=== PATIENT | female | born 1985 | race Caucasian/White ===

== ENCOUNTER 2017-06-07 13:37 | Emergency (ER) | payer OTHER ==
[2017-06-07 13:42] VITALS: BP 121/64; PULSE 61; RESP 18; TEMP 97
[2017-06-07] MEDS ORDERED: ACETAMINOPHEN TAB 500 MG TAB PO STA (14:06)
[2017-06-07] MEDS ORDERED: PENICILLIN VK 500MG STARTER 4 TAB BTL PO STA (14:06)
--- NOTE | 2017-06-07 14:13 | ED ---
ENT HPI - General Chief complaint: Dental/Oral Stated complaint: dental pain, 36 weeks Time Seen by Provider: 06/07/17 13:50 Source: patient, RN notes reviewed, old records reviewed Mode of arrival: ambulatory Limitations: no limitations - History of Present Illness Initial comments: General feel presents emergency chief complaint of right lower dental pain, broken tooth #31. She reports that she did this 2 weeks ago. She reports she' s had increasing pain, swelling around the gum. She is currently 36 weeks . She reports that her [employer] is in [place], she's been going back and forth between [place] and here due to her 's work. Patient reports that she plans to [place] any time for delivery of the baby. She denies any difficulty swallowing, denies any fever or chills or major swelling noted to the face. 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 Patient reports that that has been relatively chronic. Patient denies any chest pain, short of breath, nausea, vomiting, headaches, vision changes. She reports that she's been taking Tylenol for pain with little relief. - Related Data Home Medications Medication Instructions Recorded Confirmed Acetaminophen Tab [Tylenol Tab] 650 mg PO Q4H PRN 06/07/17 06/07/17 Previous Rx's Medication Instructions Recorded Penicillin V Potassium [Pen Vee K] 500 mg PO QID #28 tablet 06/07/17 Allergies Allergy/AdvReac Type Severity Reaction Status Date / Time No Known Allergies Allergy Verified 06/07/17 13:46 Review of Systems ROS Statement: Those systems with pertinent positive or pertinent negative responses have been documented in the HPI. ROS Other: All systems not noted in ROS Statement are negative. Past Medical History Past Medical History: No Reported History History of Any Multi-Drug Resistant Organisms: None Reported Past Surgical History: Section Past Psychological History: Anxiety, Depression Smoking Status: Current every day smoker Past Alcohol Use History: None Reported Past Drug Use History: None Reported General Exam - General Exam Comments Initial Comments: 31-year-old female. No distress. General: Well appearing, well nourished, in no distress. Oriented x 3, normal mood and affect . Ambulating without difficulty. Skin: Good turgor, no rash, unusual bruising or prominent lesions Hair: Normal texture and distribution. HEENT: Head: Normocephalic, atraumatic, no visible or palpable masses, depressions, or scaring. Mouth: Mucous membranes moist, patient has broken tooth #30. Jimenez mild erythema and swelling around the tooth. Pharynx: Mucosa non-inflamed, no tonsillar hypertrophy or exudate Neck: Supple patient has a 4 cm x 5 cm soft tissue lipoma over the right anterior neck. It has been chronic. Heart: No cardiomegaly or thrills; regular rate and rhythm, no murmur or gallop Lungs: Clear to auscultation and percussion Abdomen: Bowel sounds normal, no tenderness, organomegaly, masses, or hernia Back: Spine normal without deformity or tenderness, no CVA tenderness Extremities: No amputations or deformities, cyanosis, edema or varicosities, peripheral pulses intact Musculoskeletal: Normal gait and station. No misalignment, asymmetry, crepitation, defects, tenderness, masses. Neurologic: Sensation to pain, touch, and proprioception normal. Psychiatric: Oriented X3, intact recent and remote memory, judgment and insight , normal mood and affect. Limitations: no limitations Course Vital Signs 06/07/17 13:38 Temperature 97.0 F L Pulse Rate 61 Respiratory 18 Rate Blood Pressure 121/64 O2 Sat by Pulse 98 Oximetry Medical Decision Making - Medical Decision Making 31-year-old female is currently 36 weeks presents to permanent dental pain, broken tooth #30. Minor swelling noted around the gum. This helped with the patient on Pen-Vee K. Discussed that he also acceptable for pain at this time. Discussed above seizing teabags. Discussed following up with dentist To possibly remove. I discussed the importance of following up with an [employer] here , she is traveling back and forth whenever she does live elevation is have a plan. Patient agrees to treatment plan will comply. Return parameters were discussed. Disposition Clinical Impression: Pain, dental, Broken tooth Disposition: HOME SELF-CARE Condition: Good Instructions: Dental Caries (ED), Toothache (ED) Additional Instructions: [facility] [id number] [place] [address] [phone] (existing clients only) For new clients: [phone] 1st consult: $50 (includes Xrays) Usually 30% less then private dentist for visits after. [employer] [facility] [employer] Have to pay $50 for Xrays anmd rest is covered. [phone] Prescriptions: Penicillin V Potassium [Pen Vee K] 500 mg PO QID #28 tablet Referrals: None,Stated [Primary Care Provider] - 1-2 days Kera Cuevas MD [STAFF PHYSICIAN] - 1-2 days Mónica Wade DO [Doctor of Osteopathic Medicine] - 1-2 days Time of Disposition: 14:07
== END 2017-06-07 14:26 | disposition home or self-care (01) ==
LOC: EC 13:37
DX: O9A.213 Injury, poisoning and certain other consequences of external causes complicating pregnancy, third trimester (principal); S02.5XXA Fracture of tooth (traumatic), initial encounter for closed fracture; O99.89 Other specified diseases and conditions complicating pregnancy, childbirth and the puerperium; D17.0 Benign lipomatous neoplasm of skin and subcutaneous tissue of head, face and neck; O99.333 Smoking (tobacco) complicating pregnancy, third trimester; F17.200 Nicotine dependence, unspecified, uncomplicated; Z98.890 Other specified postprocedural states; Z3A.36 36 weeks gestation of pregnancy; X58.XXXA Exposure to other specified factors, initial encounter
CPT/HCPCS: 99283

== ENCOUNTER 2017-11-13 20:51 | Emergency (ER) | payer OTHER ==
[2017-11-13 20:58] VITALS: RESP 16; TEMP 98.3
[2017-11-13 21:48] LABS: Basophils % (A) 0 %; Eosinophils # (A) 0.1 k/uL (0-0.7); Eosinophils % (A) 3 %; HCT 36.1 % (34.0-46.0); HGB 13.3 gm/dL (11.4-16.0); Hyperchromasia Slight; Lymphocytes # (A) 2.4 k/uL (1.0-4.8); Lymphocytes % (A) 47 %; MCH 33.4 pg (25.0-35.0); MCHC 36.9 g/dL (31.0-37.0); MCV 90.5 fL (80.0-100.0); Mean Platelet Volume 6.5; Monocytes # (A) 0.2 k/uL (0-1.0); Monocytes % (A) 4 %; Neutrophils # (A) 2.2 k/uL (1.3-7.7); Neutrophils % (A) 45 %; Platelet Count 263 k/uL (150-450); RBC 3.99 m/uL (3.80-5.40); RDW 12.9 % (11.5-15.5)
[2017-11-13 21:59] LABS: Anion Gap 12 mmol/L; Blood Urea Nitrogen 9 mg/dL (7-17); Calcium 9.6 mg/dL (8.4-10.2); Carbon Dioxide 21 mmol/L (22-30); Chloride 108 mmol/L (98-107); Glucose 104 mg/dL (74-99); Potassium 3.8 mmol/L (3.5-5.1); Sodium 141 mmol/L (137-145)
--- NOTE | 2017-11-13 22:06 | ED ---
ENT HPI - General Chief complaint: ENT Stated complaint: cyst on neck/dental pain Time Seen by Provider: 11/13/17 21:23 Source: patient Mode of arrival: ambulatory Limitations: no limitations - History of Present Illness Initial comments: This patient is a 32-year-old woman who presents to have reevaluation of a right -sided neck mass that she states has been present for at least 4 years. 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 She states that she is concerned that there may have been some pattern changer the past few days. She had initially developed some right and aVL her tooth pain. And then she noted that over the past day to 2 it felt like the neck mass may have been a little larger and it may be sore now as well. She states that related to the dental pain her partner gave her some Keflex to take but it is not been helping much. She denies any change in speech, or any difficulty with breathing. No fever or chills. No palpitations. MD complaint: tooth pain, difficulty swallowing Onset/Timin -: days(s) Location: tooth # (31) Severity: mild Quality: aching Consistency: constant Improves with: none Worsens with: none Context- Dental: history of dental caries - Related Data Home Medications Medication Instructions Recorded Confirmed Ibuprofen [Motrin Ib] 800 mg PO TID PRN 11/13/17 11/13/17 Penicillin V Potassium [Pen Vee K] 500 mg PO QID 11/13/17 11/13/17 Sertraline [Zoloft] 50 mg PO HS 11/13/17 11/13/17 Previous Rx's Medication Instructions Recorded Amoxicillin 500 mg PO Q8H #21 capsule 11/13/17 Allergies Allergy/AdvReac Type Severity Reaction Status Date / Time No Known Allergies Allergy Verified 11/13/17 21:25 Review of Systems ROS Statement: Those systems with pertinent positive or pertinent negative responses have been documented in the HPI. ROS Other: All systems not noted in ROS Statement are negative. Constitutional: Denies: fever, chills, weakness Eyes: Denies: eye pain, vision change ENT: Reports: throat pain, dental pain. Denies: ear pain, congestion Respiratory: Denies: cough, dyspnea Cardiovascular: Denies: chest pain, palpitations Gastrointestinal: Denies: vomiting Skin: Denies: rash Neurological: Denies: headache, weakness, numbness Past Medical History Past Medical History: No Reported History History of Any Multi-Drug Resistant Organisms: None Reported Past Surgical History: Section Past Psychological History: Anxiety, Depression Smoking Status: Current every day smoker Past Alcohol Use History: None Reported Past Drug Use History: None Reported General Exam Limitations: no limitations General appearance: alert, in no apparent distress Head exam: Present: atraumatic, normocephalic Eye exam: Present: normal appearance, PERRL, EOMI. Absent: scleral icterus, conjunctival injection, nystagmus ENT exam: Present: normal oropharynx, mucous membranes moist, other (Patient does have caries to number teeth, including #31 which has some minimal tenderness to palpation. There is no palpable abscess, there is no drainage.) Neck exam: Present: full ROM. Absent: meningismus, lymphadenopathy, thyromegaly Expanded Neck exam: Present: other (The patient has an approximately 6 cm rubbery, mobile , mass to the right side of the neck, inferior to the angle of the mandible on the right. I am able to palpate this without much tenderness at all. There is no erythema or warmth.). Absent: midline deformity, anterior neck swelling, thyroid mass, carotid bruit, tracheal deviation Respiratory exam: Present: normal lung sounds bilaterally. Absent: respiratory distress, wheezes, rales, rhonchi, stridor Cardiovascular Exam: Present: regular rate, normal rhythm, normal heart sounds. Absent: systolic murmur, diastolic murmur, rubs, gallop Skin exam: Present: warm, dry, intact, normal color. Absent: rash Course Vital Signs 11/13/17 20:54 Temperature 98.3 F Pulse Rate 82 Respiratory 16 Rate Blood Pressure 119/66 O2 Sat by Pulse 98 Oximetry Medical Decision Making - Lab Data Result diagrams: 11/13/17 21:42 11/13/17 21:42 Lab Results 11/13/17 11/13/17 11/13/17 Range/Units 21:42 21:42 22:05 WBC 5.0 (3.8-10.6) k/uL RBC 3.99 (3.80-5.40) m/uL Hgb 13.3 (11.4-16.0) gm/dL Hct 36.1 (34.0-46.0) % MCV 90.5 (80.0-100.0) fL MCH 33.4 (25.0-35.0) pg MCHC 36.9 (31.0-37.0) g/dL RDW 12.9 (11.5-15.5) % Plt Count 263 (150-450) k/uL Neutrophils % 45 % Lymphocytes % 47 % Monocytes % 4 % Eosinophils % 3 % Basophils % 0 % Neutrophils # 2.2 (1.3-7.7) k/uL Lymphocytes # 2.4 (1.0-4.8) k/uL Monocytes # 0.2 (0-1.0) k/uL Eosinophils # 0.1 (0-0.7) k/uL Basophils # 0.0 (0-0.2) k/uL Hyperchromasia Slight Sodium 141 (137-145) mmol/L Potassium 3.8 (3.5-5.1) mmol/L Chloride 108 H (98-107) mmol/L Carbon Dioxide 21 L (22-30) mmol/L Anion Gap 12 mmol/L BUN 9 (7-17) mg/dL Creatinine 0.80 (0.52-1.04) mg/dL Est GFR (CKD-EPI)AfAm >90 (>60 ml/min/1.73 sqM) Est GFR (CKD-EPI)NonAf >90 (>60 ml/min/1.73 sqM) Glucose 104 H (74-99) mg/dL Calcium 9.6 (8.4-10.2) mg/dL Urine HCG, Qual Not Detected (Not Detectd) Disposition 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
[2017-11-13] MEDS ORDERED: RX INFO: IV CONTRAST WAS GIVEN 1 EACH MISC MISCELLANE PRN (22:41)
--- NOTE | 2017-11-13 23:05 | CT ---
EXAMINATION TYPE: CT soft tissue neck w con DATE OF EXAM: 11/13/2017 10:57 PM COMPARISON: NONE HISTORY: Right sided neck mass x [address] DLP: 272.2 mGycm Automated exposure control for dose reduction was used. CONTRAST: CT scan of the neck is performed following with IV Contrast, patient injected with 100 mL of Isovue 3 00. Axial images are obtained, coronal and sagittal reformatted images are reviewed. FINDINGS: There is normal branching pattern of the great vessels on the aortic arch. Thyroid gland is symmetric . There is normal contrast opacification of the carotid arteries and jugular veins and vertebral lindy sherry. Epiglottis is normal. Subglottic trachea is normal. Tonsils and adenoids appear normal. Submand ibular salivary glands are symmetric. The parotid glands are symmetric. There is a 4.6 x 2.9 cm thin- walled cystic mass in the subcutaneous tissues anterior to the right sternocleidomastoid mastoid musc le. There is no pathologic enhancement. This has water density. There is normal aeration of the paran dena sinuses. IMPRESSION: Large subcutaneous cystic mass on the right anterior neck has benign features and could be a branchial cleft cyst.
[2017-11-13 23:37] VITALS: BP 104/55; PULSE 54
== END 2017-11-13 23:37 | disposition home or self-care (01) ==
LOC: EC 20:51
DX: Q18.0 Sinus, fistula and cyst of branchial cleft (principal); K02.9 Dental caries, unspecified; F32.9 Major depressive disorder, single episode, unspecified; F41.9 Anxiety disorder, unspecified; F17.200 Nicotine dependence, unspecified, uncomplicated; Z79.899 Other long term (current) drug therapy
CPT/HCPCS: 36415; 80048; 85025; 81025; 70491; 99284; Q9967